=== PATIENT | male | born 1975 | race Caucasian/White ===

== ENCOUNTER 2021-05-19 05:55 | Emergency (ER) | payer OTHER ==
[~2021-05-19] VITALS: Ht 177.8 cm; Wt 97.5 kg
[2021-05-19] MEDS ORDERED: HUMALOG100 UNIT/1 (06:14)
[2021-05-19] MEDS ORDERED: TRESIBA100 UNIT/1 (06:15)
[2021-05-19 08:08] VITALS: BP 122/98
== END 2021-05-19 08:11 | disposition home or self-care (01) ==
LOC: M.ERS 05:55
DX: M54.2 Cervicalgia (principal); M54.9 Dorsalgia, unspecified; M79.601 Pain in right arm; Z53.21 Procedure and treatment not carried out due to patient leaving prior to being seen by health care provider